=== PATIENT | female | born 1985 | race American Indian/Alaskan Native ===

== ENCOUNTER 2021-05-05 03:48 | Inpatient (IN) | payer OTHER ==
--- OUTSIDE RECORDS SUMMARY | 2021-05-05 05:56 | XMS REPORT | Continuity of Care Document ---
:1985 Author Organization [facility] Address [address] [place] [place] [id number] Care Team Providers Name Role Phone Unavailable Unavailable Unavailable Problems This patient has no known problems. Allergies, Adverse Reactions, Alerts This patient has no known allergies or adverse reactions. Medications This patient has no known medications. Procedures This patient has no known procedures. Results This patient has no known results.
[2021-05-05] MEDS ORDERED: METHYLERGONOVINE 0.2MG/ML AMP IM PRN ×2 (05:58→13:24)
[2021-05-05] MEDS ORDERED: Ringers Lactate 1,000 ML IV PRN (05:58)
[2021-05-05] MEDS ORDERED: MEPERIDINE HCL 25 MG/ML SYR IV PRN (05:58)
[2021-05-05] MEDS ORDERED: BUTORPHANOL 1 MG/ML INJ IV PRN (05:58)
[2021-05-05] MEDS ORDERED: Ringers Lactate 1,000 ML IV SCH (06:00)
[2021-05-05] MEDS ORDERED: OXYTOCIN/LR 20 UNIT/1,000 ML BAG IV SCH (06:00)
[2021-05-05 06:20] VITALS: BMI 26.4
[2021-05-05 06:38] LABS: Absolute Lymphocytes (CBC) 2.3 K/uL (0.7-4.9); Basophils % 0.2 % (0-1.3); Hematocrit 36.3 % (36.0-45.0); Lymphocytes % 27.3 % (15.3-44.8); MPV 11.3 fL (7.6-11.3); RBC Red Blood Cell Count 4.24 M/uL (3.86-4.86)
[2021-05-05 06:44] LABS: Urine Appearance TURBID (Clear); Urine Bilirubin NEGATIVE (Negative); Urine Blood 3+ (Negative); Urine Color YELLOW (Yellow); Urine Glucose NEGATIVE (Negative); Urine Protein 2+ (Negative); Urine Specific Gravity <=1.005 (1.005-1.030); Urine Urobilinogen 0.2 mg/dL (0.2-1.0); Urine pH 7.5 (5.0-7.0)
[2021-05-05 06:50] LABS: Urine Microscopic Reflex ORDER UMIC
[2021-05-05 07:06] LABS: Urine Bacteria NONE SEEN /HPF (<20); Urine RBC 20-50 /HPF (NONE SEEN)
[2021-05-05] MEDS ORDERED: FENTANYL/BUPIVACAINE/NS/PF 200 MCG/100 ML BAG EP PRN (07:56)
[2021-05-05] MEDS ORDERED: ROPIVACAINE HCL 0.2% 20ML AMP IV ONE (07:56)
[2021-05-05] MEDS ORDERED: FENTANYL CITR 100 MCG/2 ML IV ONE (07:56)
[2021-05-05] MEDS ORDERED: BUPIVACAINE 0.25% PF 10 ML VIAL IJ PRN (07:56)
[2021-05-05] MEDS ORDERED: LIDOCAINE 1% MPF 30 ML VIAL ONE (09:36)
[2021-05-05] MEDS ORDERED: ZOLPIDEM TARTRATE 5 MG TABLET PO PRN (13:24)
[2021-05-05] MEDS ORDERED: ONDANSETRON 4 MG/2 ML VIAL IV PRN (13:24)
[2021-05-05] MEDS ORDERED: ACETAMINOPHEN 500 MG TAB PO PRN (13:24)
[2021-05-05] MEDS: IBUPROFEN 600 MG TAB PO PRN ×2 (15:02→20:12)
[2021-05-05] MEDS: Oxycodone HCl/Acetaminophen 1 TAB TAB PO PRN (20:13)
[2021-05-05 20:57] LABS: RPR (Rapid Plasma Reagin) NON-REACT (NON-REACT)
[2021-05-05] MEDS ORDERED: DOCUSATE NA/SENNA CONC 1 TAB PO PRN (23:33)
[2021-05-06] MEDS ORDERED: DOCUSATE NA/SENNA CONC 1 TAB ONE (00:09)
[2021-05-06] MEDS: Oxycodone HCl/Acetaminophen 1 TAB TAB PO PRN (04:24)
[2021-05-06] MEDS: IBUPROFEN 600 MG TAB PO PRN (04:24)
[2021-05-06] MEDS ORDERED: Ringers Lactate 1,000 ML IV ONE (07:18)
[2021-05-06] MEDS ORDERED: MAGNESIUM HYDROXIDE 8% 30 ML PO ONE (13:00)
[2021-05-06 14:01] VITALS: TEMP 97.7
[2021-05-06] MEDS ORDERED: BISACODYL 10 MG RECTAL SUPP PR ONE (16:39)
[2021-05-06 18:32] VITALS: BP 117/71
[2021-05-08 19:19] LABS: HBsAG Nonreactive (Nonreactive)
== END 2021-05-06 18:30 | disposition home or self-care (01) | DRG 807 ==
LOC: L&D 03:48 → 2ND-WC 05:53
PROVIDERS: ADMIT Specialist; ATTEND Specialist
PROC: 10E0XZZ Delivery of Products of Conception, External Approach (ICD-10-PCS; principal; 2021-05-05)
PROC: 0KQM0ZZ Repair Perineum Muscle, Open Approach (ICD-10-PCS; 2021-05-05)
PROC: 3E033VJ Introduction of Other Hormone into Peripheral Vein, Percutaneous Approach (ICD-10-PCS; 2021-05-05)
DX: O70.1 Second degree perineal laceration during delivery (principal); Z37.0 Single live birth; Z3A.37 37 weeks gestation of pregnancy; Z20.822 Contact with and (suspected) exposure to COVID-19
CPT/HCPCS: 36415; 81003; 81015; 85014; 85018; 85025; 86592; 86850; 86900; 86901; 87340; J2210; J2590; J3010; J7120; U0003